=== PATIENT | female | born 2005 | race African-American/Black ===

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

== ENCOUNTER 2023-05-07 13:35 | Emergency (ER) | payer OTHER, SELFPAY ==
[2023-05-07 14:18] LABS: Pregnancy Test - Urine (BHCG) Negative (Negative); Pregu Control Background? CLEAR/WHITE (CLR/WHITE); Pregu Control Bar Appear? YES (CONTROL BAR); Specific Gravity 1.022 (1.002-1.036)
[2023-05-07] MEDS ORDERED: Dexamethasone 4 MG TAB ONE (14:23)
== END 2023-05-07 15:02 | disposition home or self-care (01) ==
LOC: MADERS 13:35
DX: J10.1 Influenza due to other identified influenza virus with other respiratory manifestations (principal)
CPT/HCPCS: 81025; 87635; 87804; 99284; J8540

== ENCOUNTER 2024-11-24 13:58 | Emergency (ER) | payer SELFPAY | END 2024-11-24 15:00 | disposition home or self-care (01) | LOC: MADERS 13:58 | DX: U07.1 COVID-19 (principal); J45.909 Unspecified asthma, uncomplicated | CPT/HCPCS: 99283 ==